=== PATIENT | female | born 1990 | race Caucasian/White ===

== ENCOUNTER 2018-06-22 18:06 | Emergency (ER) | payer BC, OTHER ==
[2018-06-22 18:51] VITALS: BP 124/57; PULSE 97; TEMP 99.2; BMI 23.2
--- NOTE | 2018-06-22 18:57 | PDOC ---
Rapid Medical Evaluation Time Seen by Provider: 06/22/18 18:47 Medical Evaluation: Allergies Allergy/AdvReac Type Severity Reaction Status Date / Time No Known Allergies Allergy Verified 03/27/17 08:24 06/22/18 19:02 Pt presents for back pain and R sided flank pain since this morning. States it feels like her kidney stone pain Exam: R CVA tenderness Orders: labs, IV, urine Pt to proceed to ED for further evaluation Discharge Disposition - Diagnosis Back pain - Referrals - Patient Instructions - Post Discharge Activity
--- NOTE | 2018-06-22 19:17 | PDOC ---
*Physical Exam - Vital Signs Last Vital Signs Temp Pulse Resp BP Pulse Ox 99.2 F 97 H 18 124/57 L 99 06/22/18 18:49 06/22/18 18:49 06/22/18 18:49 06/22/18 18:49 06/22/18 18:49 ED Treatment Course - LABORATORY CBC & Chemistry Diagram: 06/22/18 18:51 06/22/18 18:51 Medical Decision Making - Medical Decision Making 06/22/18 19:16 Patient seen by the advanced practice provider under my direct supervision. Ancillary testing reviewed as necessary. I agree with plan as outlined by the advanced practice provider. *DC/Admit/Observation/Transfer Diagnosis at time of Disposition: Ovarian cyst Qualifiers: Laterality: right Qualified Code(s): N83.201 - Unspecified ovarian cyst, right side - Referrals - Patient Instructions Printed Discharge Instructions: DI for Ovarian Cyst Additional Instructions: take ibuprofen every 6 hours as needed for pain. follow up with a billet heater operator as soon as possible. Additional Instructions: * Please call your personal physician to report your Emergency Department visit and to report your progress, if any. * If there is no improvement in symptoms in 2 days call your physician. * Return to the Emergency Department for any worsening symptoms. - Post Discharge Activity
--- NOTE | 2018-06-22 19:32 | PDOC ---
History of Present Illness - General Chief Complaint: Pain, Acute Stated Complaint: BACK PAIN Time Seen by Provider: 06/22/18 18:47 History Source: Patient - History of Present Illness Initial Comments: 06/22/18 19:27 28 year old female c/o b/l flank pain with hematuria started this morning. " i think its my kidney stones. i had the same pain before. " + nausea and feeling hot. Pmhx: kidney stones Past History - Past Medical History Allergies/Adverse Reactions: Allergies Allergy/AdvReac Type Severity Reaction Status Date / Time No Known Allergies Allergy Verified 03/27/17 08:24 Home Medications: Ambulatory Orders Sulfamethoxazole/Trimethoprim [Bactrim Ds -] 1 tab PO BID #14 tablet 03/27/17 Asthma: No Cancer: No Cardiac Disorders: No COPD: No Diabetes: No Disorders: Yes (hx kidney stones) HTN: No Seizures: No Thyroid Disease: No - Reproductive History (#): 3 Para: 1 Therapeutic (s) & number: Yes (1) Spontaneous : 1 - Immunization History Immunization Up to Date: Yes - Suicide/Smoking/Psychosocial Hx Smoking Status: No Smoking History: Never smoked Have you smoked in the past 12 months: No Number of Cigarettes Smoked Daily: 0 Hx Alcohol Use: No Drug/Substance Use Hx: No Substance Use Type: None Hx Substance Use Treatment: No Review of Systems - Review of Systems Able to Perform ROS?: Yes Is the patient limited Japanese proficient: No *Physical Exam - Vital Signs Last Vital Signs Temp Pulse Resp BP Pulse Ox 99.2 F 97 H 18 124/57 L 99 06/22/18 18:49 06/22/18 18:49 06/22/18 18:49 06/22/18 18:49 06/22/18 18:49 - Physical Exam General Appearance: Yes: Appropriately Dressed HEENT: positive: Normal ENT Inspection Respiratory/Chest: positive: Lungs Clear, Normal Breath Sounds Female Pelvic Exam: positive: other (right adenexal tenderness) Gastrointestinal/Abdominal: positive: Normal Bowel Sounds, Soft. negative: Tender Integumentary: positive: Normal Color, Dry, Warm Neurologic: positive: Fully Oriented, Alert, Normal Mood/Affect Moderate Sedation - Procedure Monitoring Vital Signs: Procedure Monitoring Vital Signs Temperature 99.2 F 06/22/18 18:49 Pulse Rate 97 H 06/22/18 18:49 Respiratory Rate 18 02/05/19 18:49 Blood Pressure 124/57 L 06/22/18 18:49 O2 Sat by Pulse Oximetry (%) 99 06/22/18 18:49 ED Treatment Course - LABORATORY CBC & Chemistry Diagram: 06/22/18 18:51 06/22/18 18:51 *DC/Admit/Observation/Transfer Diagnosis at time of Disposition: Ovarian cyst Qualifiers: Laterality: right Qualified Code(s): N83.201 - Unspecified ovarian cyst, right side - Discharge Dispostion Disposition: HOME - Referrals Referrals: Seth Virk MD [Staff Physician] - 24 hours - Patient Instructions Printed Discharge Instructions: DI for Ovarian Cyst Additional Instructions: take ibuprofen every 6 hours as needed for pain. follow up with a store lead as soon as possible. Additional Instructions: * Please call your personal physician to report your Emergency Department visit and to report your progress, if any. * If there is no improvement in symptoms in 2 days call your physician. * Return to the Emergency Department for any worsening symptoms. - Post Discharge Activity Forms/Work/School Notes: Back to Work
[2018-06-22] MEDS ORDERED: SODIUM CHLORIDE 1,000 ML IV STA (19:43)
[2018-06-22] MEDS ORDERED: ACETAMINOPHEN INJECTION 100 ML IVPB ONE (20:10)
[2018-06-22] MEDS ORDERED: ACETAMINOPHEN 1000 MG/100 ML VIAL (NON FORMULARY) IVPB ONE (20:10)
[2018-06-22 20:34] LABS: BASO % 0.4 % (0-2.0); EOS % 0.6 % (0-4.5); HEMATOCRIT 37.8 % (32.4-45.2); HEMOGLOBIN 12.7 GM/dL (10.7-15.3); LYMPH % 7.2 % (8-40); MCH 30.6 pg (25.7-33.7); MCHC 33.7 g/dl (32.0-36.0); MEAN CELL VOLUME 90.8 fl (80-96); MEAN PLT VOLUME 8.8 fl (7.5-11.1); MONO % 3.9 % (3.8-10.2); NEUT % 87.9 % (42.8-82.8); PLATELET COUNT 356 K/MM3 (134-434); RBC 4.16 M/mm3 (3.60-5.2); RDW 13.1 % (11.6-15.6); WHITE BLOOD COUNT 12.2 K/mm3 (4.0-10.0)
[2018-06-22 20:38] LABS: URINE APPEARANCE CLEAR; URINE BILIRUBIN NEGATIVE (<2.0 mg/dL); URINE COLOR YELLOW; URINE GLUCOSE (UA) NEGATIVE (NEGATIVE); URINE KETONE NEGATIVE (NEGATIVE); URINE LEUK ESTERASE NEGATIVE (NEGATIVE); URINE NITRITE NEGATIVE (NEGATIVE); URINE PROTEIN NEGATIVE (NEGATIVE); URINE UROBILINOGEN 4.0 E.U/dl mg/dL (0.2-1.0)
[2018-06-22 20:39] LABS: HCG,QUALITATIVE URINE Negative
[2018-06-22 20:48] LABS: INR 1.12 (0.83-1.09); PROTHROMBIN TIME (PATIENT) 13.2 SEC (9.7-13.0)
[2018-06-22 21:01] LABS: ALK PHOS 94 U/L (45-117); ANION GAP 9 MMOL/L (8-16); BILIRUBIN,TOTAL 0.6 mg/dL (0.2-1); BLOOD UREA NITROGEN 17 mg/dL (7-18); CALCIUM 8.9 mg/dL (8.5-10.1); CHLORIDE 103 mmol/L (98-107); CO2 28 mmol/L (21-32); CREATININE 0.7 mg/dL (0.55-1.3); GLUCOSE,RANDOM 91 mg/dL (74-106); POTASSIUM 4.5 mmol/L (3.5-5.1); SGOT/AST 20 U/L (15-37); SGPT/ALT 11 U/L (13-61); SODIUM 140 mmol/L (136-145)
== END 2018-06-23 00:22 | disposition home or self-care (01) ==
LOC: JER 18:06
DX: N83.201 Unspecified ovarian cyst, right side (principal); Z87.442 Personal history of urinary calculi
CPT/HCPCS: 36415; 74176; 76830-TC; 80053; 81003; 84703; 85025; 85610; 87086; 99283-25; J0131; J7030

== ENCOUNTER 2020-12-25 19:14 | Emergency (ER) | payer OTHER ==
[2020-12-25 19:28] VITALS: TEMP 98.2; BMI 25.4
[2020-12-25] MEDS ORDERED: SODIUM CHLORIDE 0.9% 500 ML INFUS.BAG IV ONE (20:37)
[2020-12-25 21:08] LABS: BASO % 0.8 % (0-2.0); EOS % 1.2 % (0-4.5); HEMATOCRIT 36.7 % (32.4-45.2); HEMOGLOBIN 12.6 GM/dL (10.7-15.3); LYMPH % 23.5 % (8-40); MCH 31.3 pg (25.7-33.7); MCHC 34.3 g/dl (32.0-36.0); MEAN CELL VOLUME 91.3 fl (80-96); MEAN PLT VOLUME 8.3 fl (7.5-11.1); MONO % 5.4 % (3.8-10.2); NEUT % 69.1 % (42.8-82.8); PLATELET COUNT 307 10^3/uL (134-434); RBC 4.02 M/mm3 (3.60-5.2); RDW 13.2 % (11.6-15.6); WHITE BLOOD COUNT 8.2 K/mm3 (4.0-10.0)
[2020-12-25 21:10] LABS: URINE APPEARANCE Error; URINE BILIRUBIN NEGATIVE (NEGATIVE); URINE COLOR YELLOW; URINE GLUCOSE (UA) NEGATIVE (NEGATIVE); URINE KETONE NEGATIVE (NEGATIVE); URINE LEUK ESTERASE NEGATIVE (NEGATIVE); URINE NITRITE NEGATIVE (NEGATIVE); URINE PROTEIN NEGATIVE (NEGATIVE); URINE UROBILINOGEN 0.2 mg/dL (0.2-1.0)
[2020-12-25] MEDS ORDERED: ONDANSETRON 4 MG/2 ML VIAL IVPUSH ONE (21:30)
[2020-12-25] MEDS ORDERED: ONDANSETRON 4 MG/2 ML VIAL ONE (21:42)
[2020-12-25 21:46] LABS: ALBUMIN 3.9 g/dl (3.4-5.0); BLOOD UREA NITROGEN 13.1 mg/dL (7-18); CALCIUM 8.8 mg/dL (8.5-10.1)
[2020-12-25 21:48] LABS: CREATININE 0.7 mg/dL (0.55-1.3)
[2020-12-25 21:50] LABS: BILIRUBIN,TOTAL 0.7 mg/dL (0.2-1)
[2020-12-25] MEDS ORDERED: LIDOCAINE PATCH REMOVAL MC SCH (22:00)
[2020-12-25] MEDS ORDERED: LIDOCAINE 5% TOPICAL PATCH TP ONE (23:11)
[2020-12-25] MEDS ORDERED: KETOROLAC TROMETHAMINE 30 MG/1 ML VIAL IVPUSH ONE (23:11)
[2020-12-25] MEDS ORDERED: LIDOCAINE 5% TOPICAL PATCH ONE (23:21)
[2020-12-25] MEDS ORDERED: KETOROLAC TROMETHAMINE 30 MG/1 ML VIAL ONE (23:21)
[2020-12-25 23:31] VITALS: BP 126/89; PULSE 71
[2020-12-26] MEDS ORDERED: LIDOCAINE PATCH REMOVAL MC ONE (12:00)
== END 2020-12-25 23:31 | disposition home or self-care (01) ==
LOC: JER 19:14
PROC: 3E0333Z Introduction of Anti-inflammatory into Peripheral Vein, Percutaneous Approach (ICD-10-PCS; principal; 2020-12-25)
PROC: 3E033GC Introduction of Other Therapeutic Substance into Peripheral Vein, Percutaneous Approach (ICD-10-PCS; 2020-12-25)
DX: M54.9 Dorsalgia, unspecified (principal)
CPT/HCPCS: 36415; 76700-TC; 80053; 81003; 83690; 85025; 99284-25